=== PATIENT | male | born 1935 | race Caucasian/White ===

== ENCOUNTER 2017-01-29 11:08 | Emergency (ER) | payer OTHER, BC ==
--- NOTE | 2017-01-29 11:28 | CPEKG ---
Heart Rate: 78 RR Interval: 769 QRSD Interval: 106 QT Interval: 448 QTC Interval: 511 QRS [place]: 111 T Wave [place]: 9 EKG Severity - ABNORMAL ECG - EKG Impression: ATRIAL FIBRILLATION EKG Impression: LEFT POSTERIOR FASCICULAR BLOCK EKG Impression: ABNRM R PROG, CONSIDER ASMI OR LEAD PLACEMENT EKG Impression: PROLONGED QT INTERVAL Electronically Signed By: Jaziel Bee 29-Jan-2017 11:57:02
--- NOTE | 2017-01-29 11:28 | CPEKG ---
Heart Rate: 78 RR Interval: 769 QRSD Interval: 106 QT Interval: 448 QTC Interval: 511 QRS [place]: 111 T Wave [place]: 9 EKG Severity - ABNORMAL ECG - EKG Impression: ATRIAL FIBRILLATION EKG Impression: LEFT POSTERIOR FASCICULAR BLOCK EKG Impression: ABNRM R PROG, CONSIDER ASMI OR LEAD PLACEMENT EKG Impression: PROLONGED QT INTERVAL Electronically Signed By: Jaziel Bee 29-Jan-2017 11:57:02
[2017-01-29 11:37] LABS: PLATELET COUNT 152 10^3/uL (150-400)
--- NOTE | 2017-01-29 11:48 | EDPHY ---
H & P Stated Complaint: dyspnea x1 day worse with exertion Time Seen by Provider: 01/29/17 11:20 HPI/ROS: This patient complains of dyspnea on exertion more than dyspnea at baseline over the past 2 days. The patient has a history of mitral valve replacement 20 years ago on Coumadin with chronic AFib and flew here from [place] 9 days ago to stay with family-his daughter and son-in-law. He describes yesterday having an episode of dyspnea with minimal exertion of pulling nails out of boards and then this distant became worse with 50 yd walk to the home. He had to rest take regain his breath for few minutes thereafter. Usually he has good exercise tolerance at baseline so this was unusual for him. He has chronic right leg edema with no recent change but reports slight increase in left leg edema compared to baseline. The patient presented to [facility] initially with the symptoms but due to the symptoms was instructed to come here for evaluation instead was brought in by his daughter and son-in-law by private vehicle. The patient reports that recently his INR was low somewhere in the ones. The increased his Coumadin dose and response to that and his last INR was just over 2. ROS: No recent fevers or chills. He does have some fatigue compared to baseline. Psychiatric: The patient is still grieving the the of his in April. He also has some chronic anxiety and has taken Xanax 0.25 mg at bedtime and when he awakens after 4 hours or so for several months. He wants to stop the Xanax so he did not take last night's dose at bedtime using melatonin flare in route instead. He also did not have his typical evening martini over the past 2 nights and he awakened a few hours after falling asleep with what felt like a panic attack to him-extreme anxiety shortness of breath and emotional upset. This gradually subsided over time without intervention. Neuro: No headache, numbness tingling or other complaints no focal weakness. HEENT: No recent URI symptoms. No other complaints Pulmonary: No pleuritic pain. Cardiovascular: Patient admits orthopnea. His description of last night's panic episode is likely paroxysmal nocturnal dyspnea. He describes feeling like he had to sit up to catch his breath He does describe a mild right chest ache yesterday 06/10 at peak intensity that has resolved with exception of some lingering right pectoral region tenderness to touch. He describes heart palpitations during what felt like a panic attack p.m. last night describing a racing heart feeling. He is uncertain if this came on abruptly like lytes which are gradually. He also feels an occasional extra beat in his heart. At the moment he notices no significant heart palpitations. GI: No abdominal pain, nausea or vomiting : No complaints Integumentary: No significant pallor noted by family. Endocrine: His daughter notes the patient has had sensitivity to temperature requesting blankets in their home that is kept at 60 degrees becoming cold quite easily. Complete review of symptoms is otherwise negative. 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 Chronic AFib (taken off of digoxin 1 year ago) Hypertension Dyslipidemia Hx Asthma: No Hx Chronic Respiratory Disease: No Hx Diabetes: No Hx Cardiac Disease: Yes Hx Renal Disease: No Hx Cirrhosis: No Hx Alcoholism: No Hx HIV/AIDS: No Other PMH: mitral valve replacement, open heart surgery, HTN, gout - Family History Significant Family History: No pertinent family hx - Social History Smoking Status: Never smoked Alcohol Use: Other (He typically has 1 martini a night though he has not had a drink the previous 2 nights.) Drug Use: None Additional Social History: Visiting his family from [place] for the past 9 days. - Physical Exam Exam: General Appearance: Alert, no distress. Eyes: Pupils equal and round no pallor or injection. ENT, Mouth: Mucous membranes moist. Respiratory: There are no retractions, lungs are clear to auscultation. The patient has mild chest wall tenderness over the right pectoralis region Cardiovascular: Irregularly irregular with 3/6 holosystolic murmur. No JVD. Patient has moderate edema (2+ pitting) to the right lower extremity mild edema left lower extremity without significant tenderness. Gastrointestinal: Abdomen is soft and nontender, no masses, bowel sounds normal. Neurological: GCS 15 with no focal deficits. Skin: Warm and dry, no rashes. Musculoskeletal: Neck is supple nontender. Extremities are symmetrical, full range of motion. Psychiatric: Mood and affect normal DIFFERENTIAL DIAGNOSIS: After history and physical exam differential diagnosis was considered for pulmonary embolism, congestive heart failure, anxiety, myocardial ischemic disease, altitude intolerance, thyroid disease Constitutional: Initial Vital Signs Heart Rate 83 01/29/17 11:20 Respiratory Rate 20 01/29/17 11:20 Blood Pressure 136/97 H 01/29/17 11:20 O2 Sat (%) 93 01/29/17 11:20 O2 Delivery Mode Room Air Allergies/Adverse Reactions: Iodine and Iodide Containing Produc Allergy (Verified 01/29/17 11:24) Home Medications: Medication Instructions Recorded Allopurinol 300 MG (RX) 01/29/17 Aspirin 81mg (*) 01/29/17 Coumadin 5MG (*) 01/29/17 Furosemide [Lasix 20 MG (*)] 20 mg PO DAILY #30 tab 01/29/17 Lisinopril-Hctz 10-12.5 mg Tab 01/29/17 Multi-Vitamin Daily 01/29/17 Potassium Cl [Klor-Con 10 meq (RX)] 10 meq PO DAILY #30 tab 01/29/17 Tenormin 25 mg (*) 01/29/17 Warfarin Sodium [Coumadin 2.5MG 2.5 mg PO DAILY16 #20 tab 01/29/17 (*)] Xanax 0.25 MG (*) 01/29/17 Medical Decision Making - Diagnostics EKG Interpretation: 12 lead EKG: Performed at 11:23 a.m. indication dyspnea rule out coronary syndrome or other Atrial fibrillation at a rate of 78 Intervals: QRS of 106, QTC of [address]: QRS of 111, T of [address] segments: Normal throughout with exception of [address] depression in lead V6. Overall assessment atrial fibrillation, left posterior fascicular block, 1 PVC Imaging Results: Imaging Impressions Chest X-Ray 01/29/17 11:12 Impression: 1. Chronic CHF with interstitial pulmonary edema. No alveolar pulmonary edema identified. 2. Cannot exclude developing right lung pneumonia. Cardiomegaly with mild CHF findings-interstitial edema by my interpretation Imaging: I viewed and interpreted images myself ED Course/Re-evaluation: IV, monitor Counseled patient regarding his symptoms in anticipated workup and plan. Patient is treated with 0.5 inch nitropaste and 20 of Lasix IV Patient brisk diuresis with initial 375 mL of urine. I counseled him regarding CHF exacerbation. The patient prefers to proceed home rather than stay here longer and review of his labs reveals a normal D- dimer, INR of 2.1, normal CBC and chemistries. Is elevated B is consistent with his clinical findings of CHF exacerbation. His CHF exacerbation is likely attributable to a higher altitude, being taken off his digitalis. Other considerations would be mitral valve replacement wear, increase sodium intake while staying with his daughter that he does not think he is having more sodium unusual, thyroid disease. TSH is still pending but will at him proceed home and call with any significant abnormalities with TSH. Patient has a normal troponin I do not think he is having active cardiac ischemia. Similarly, given anticoagulation normal D-dimer do not think he is having a PE. While the radiologist mentioned potential early infiltrate at the base of the lung the chest x-ray, I do not think he has pneumonia given lack of fever, significant cough for elevated white blood cell count. Also no significant rales noted on exam. I spoke with Dr. Plata-feather duster winder on-call to facilitate follow-up. Will place the patient on 20 Lasix as an outpatient with potassium supplement, and increase his Coumadin by extra 7.5 mg dose per week. He is currently on 7.5 mg 3 times a week and 5 mg on off days. Will proceed to the 7.5 mg 4 times a week. I counseled patient regarding this. At the time of discharge the patient is breathing comfortably with an O2 sat of 94% room air normal respiratory rate ambulatory with no complaints. - Data Points Laboratory Results: Laboratory Results 01/29/17 11:30 01/29/17 11:30 01/29/17 01/29/17 01/29/17 11:30 11:30 11:30 WBC RBC Hgb Hct MCV MCH MCHC RDW Plt Count MPV Neut % (Auto) Lymph % (Auto) [place] % (Auto) Eos % (Auto) Baso % (Auto) Nucleat RBC Rel Count Absolute Neuts (auto) Absolute Lymphs (auto) Absolute Monos (auto) Absolute Eos (auto) Absolute Basos (auto) Absolute Nucleated RBC Immature Gran % Immature Gran # PT 23.4 SEC H SEC (12.0-15.0) INR 2.11 H (0.83-1.16) APTT 42.0 SEC H SEC (23.0-38.0) D-Dimer 0.31 ug/mLFEU ug/mLFEU (0.00-0.50) Sodium 136 mEq/L mEq/L (134-144) Potassium 4.4 mEq/L mEq/L (3.5-5.2) Chloride 97 mEq/L mEq/L (97-110) Carbon Dioxide 26 mEq/l mEq/l (22-31) Anion Gap 13 mEq/L mEq/L (8-16) BUN 18 mg/dL mg/dL (7-23) Creatinine 0.8 mg/dL mg/dL (0.7-1.3) Estimated GFR > 60 Glucose 110 mg/dL H mg/dL (70-100) Calcium 9.4 mg/dL mg/dL (8.5-10.4) Troponin I < 0.012 ng/mL ng/mL (0.000-0.034) NT-Pro-B Natriuret Pep 3110 pg/mL H pg/mL (0-450) TSH 2.870 uIU/mL uIU/mL (0.465-4.680) 01/29/17 11:30 WBC 6.11 10^3/uL 10^3/uL (3.80-9.50) RBC 4.24 10^6/uL L 10^6/uL (4.40-6.38) Hgb 13.9 g/dL g/dL (13.7-17.5) Hct 40.5 % % (40.0-51.0) MCV 95.5 fL fL (81.5-99.8) MCH 32.8 pg pg (27.9-34.1) MCHC 34.3 g/dL g/dL (32.4-36.7) RDW 13.9 % % (11.5-15.2) Plt Count 152 10^3/uL 10^3/uL (150-400) MPV 9.6 fL fL (8.7-11.7) Neut % (Auto) 64.6 % % (39.3-74.2) Lymph % (Auto) 26.7 % % (15.0-45.0) [place] % (Auto) 7.7 % % (4.5-13.0) Eos % (Auto) 0.5 % L % (0.6-7.6) Baso % (Auto) 0.3 % % (0.3-1.7) Nucleat RBC Rel Count 0.0 % % (0.0-0.2) Absolute Neuts (auto) 3.95 10^3/uL 10^3/uL (1.70-6.50) Absolute Lymphs (auto) 1.63 10^3/uL 10^3/uL (1.00-3.00) Absolute Monos (auto) 0.47 10^3/uL 10^3/uL (0.30-0.80) Absolute Eos (auto) 0.03 10^3/uL 10^3/uL (0.03-0.40) Absolute Basos (auto) 0.02 10^3/uL 10^3/uL (0.02-0.10) Absolute Nucleated RBC 0.00 10^3/uL 10^3/uL (0-0.01) Immature Gran % 0.2 % % (0.0-1.1) Immature Gran # 0.01 10^3/uL 10^3/uL (0.00-0.10) PT INR APTT D-Dimer Sodium Potassium Chloride Carbon Dioxide Anion Gap BUN Creatinine Estimated GFR Glucose Calcium Troponin I NT-Pro-B Natriuret Pep TSH Medications Given: Discontinued Medications Furosemide (Lasix Injection) 20 mg IVP EDNOW ONE Stop: 01/29/17 12:11 Last Admin: 01/29/17 12:16 Dose: 20 mg Nitroglycerin (Nitro-Bid 2%) 0.5 inch TP EDNOW ONE Stop: 01/29/17 12:11 Last Admin: 01/29/17 12:15 Dose: 0.5 inch Departure - Departure Disposition: Home, Routine, Self-Care Clinical Impression: Anxiety CHF exacerbation Qualifiers: Congestive heart failure type: unspecified congestive heart failure type Qualified Code(s): I50.9 - Heart failure, unspecified Condition: Good Instructions: Heart Failure (ED) Additional Instructions: Diagnosis: 1. CHF exacerbation 2. Anxiety Plan: Start taking Lasix-20 mg a day in the morning Take supplemental potassium since the Lasix washes out some potassium from the body Take a baby aspirin each day Take an increased Coumadin regimen by taking 7.5 mg total today & 4 days a week (instead of 3 days) along with the usual 5 mg doses on other days Regarding the Xanax, try a slow reduction in the dose by taking usual 0.25 mg dose at bedtime and then if you wake up with anxiety cut the 2nd dose after 0.125 mg. if you tolerate this then try reducing the bedtime dose to 0.[address] Plata-feather duster winder Monday to arrange follow-up appointment for recheck (explain that you were seen in the ED, that we spoke with Dr. Plata & that he wants to have an expedient follow-up with the patient.) Return to the emergency department for any significant worsening despite the treatment plan Also follow up with primary care physician and feather duster winder upon return to [place]. Referrals: [facility] [Other] - As per Instructions Kobe Plata MD [Medical Doctor] - As per Instructions Prescriptions: Furosemide [Lasix 20 MG (*)] 20 mg PO DAILY #30 tab Potassium Cl [Klor-Con 10 meq (RX)] 10 meq PO DAILY #30 tab Warfarin Sodium [Coumadin 2.5MG (*)] 2.5 mg PO DAILY16 #20 tab
[2017-01-29 12:06] LABS: INR 2.11 (0.83-1.16); PROTIME(PATIENT) 23.4 SEC (12.0-15.0)
[2017-01-29] MEDS ORDERED: FUROSEMIDE 20 MG/2 ML VIAL IVP ONE (12:10)
[2017-01-29] MEDS ORDERED: NITROGLYCERIN 2% 1 GM PACKET TP ONE (12:10)
[2017-01-29 13:07] VITALS: RESP 16
[2017-01-29 13:57] VITALS: BP 125/93; PULSE 65; O2SAT 93
== END 2017-01-29 13:50 | disposition home or self-care (01) ==
LOC: CED 11:08
DX: I11.0 Hypertensive heart disease with heart failure (principal); I50.9 Heart failure, unspecified; F41.9 Anxiety disorder, unspecified; Z79.82 Long term (current) use of aspirin; Z79.01 Long term (current) use of anticoagulants
CPT/HCPCS: 71020; 93005; 96374; 99285; J1940; 80048-PO; 83880-PO; 84443-PO; 84484-PO; 85025-PO; 85378-PO; 85610-PO; 85730-PO

== ENCOUNTER 2017-06-08 08:04 | Inpatient (IN) | payer OTHER, BC ==
--- NOTE | 2017-06-08 09:26 | EDPHY ---
H & P Time Seen by Provider: 06/08/17 09:25 HPI/ROS: Chief complaint. Sore throat HPI. 81-year-old male sore throat for 4 days. He is visiting from [place] and arrived yesterday. He was already ill. He felt the 8 S stuck pill in the back of his throat 5 days ago and still feels some irritation. He has had some congestion. No fever. He has been coughing. He arrived and for got his Xanax prescription so last night went to bed after taking some [place] tea but is somewhat anxious as well. He will be here for approximately 2 weeks. He denies chest pressure or shortness of breath. No abdominal pain ROS Constitutional. no fever/chills, no weakness Eyes. no problems with vision ENT. Sore throat and congestion Cardiovascular. no chest pain Respiratory. Cough but no shortness of breath Abdominal. no abdominal pain, no nausea/vomiting, no diarrhea . no problems urinating MS. no calf pain/swelling, no neck/back pain, no joint pain Skin. no rash Lymph. no swollen glands Neuro. Anxiety Past Medical/Surgical History: Past medical history is significant for mitral valve replacement, CABG, hypertension, gout Social History: , nonsmoker, no alcohol Smoking Status: Never smoked Physical Exam: General Appearance: Alert well-developed male mild distress somewhat anxious vital signs are stable Eyes: Pupils equal and round no pallor or injection. ENT, mucous membranes are moist. Pharynx without significant injection or swelling. No evidence for foreign body. There is no stridor. Patient speaks in full sentences. He is swallowing secretions. Respiratory: There are no retractions, lungs are clear to auscultation. Cardiovascular: Regular rate and rhythm. Gastrointestinal: Abdomen is soft and nontender, no masses, bowel sounds normal. Neurological: Awake and alert, sensory and motor exams grossly normal. Skin: Warm and dry, no rashes. Musculoskeletal: Neck is supple nontender. Extremities symmetrical, full range of motion. Psychiatric: Patient is oriented X 3, there is no agitation. Slightly anxious Constitutional: Initial Vital Signs Temperature (C) 36.8 C 06/08/17 08:14 Heart Rate 78 06/08/17 08:14 Respiratory Rate 18 06/08/17 08:14 Blood Pressure 113/78 06/08/17 08:14 O2 Sat (%) 95 06/08/17 08:14 O2 Delivery Mode Room Air Allergies/Adverse Reactions: Iodine and Iodide Containing Produc Allergy (Verified 06/08/17 08:12) Home Medications: Medication Instructions Recorded Allopurinol 300 MG (RX) 01/29/17 Aspirin 81mg (*) 01/29/17 Coumadin 5MG (*) 01/29/17 Furosemide [Lasix 20 MG (*)] 20 mg PO DAILY #30 tab 01/29/17 Lisinopril-Hctz 10-12.5 mg Tab 01/29/17 Multi-Vitamin Daily 01/29/17 Potassium Cl [Klor-Con 10 meq (RX)] 10 meq PO DAILY #30 tab 01/29/17 Warfarin Sodium [Coumadin 2.5MG 2.5 mg PO DAILY16 #20 tab 01/29/17 (*)] Xanax 0.25 MG (*) 01/29/17 ALPRAZolam [Xanax 0.25 MG (*)] 0.25 mg PO BID #30 tab 06/08/17 Toprol Xl 06/08/17 Medical Decision Making - Diagnostics Imaging Results: Imaging Impressions Chest X-Ray 06/08/17 09:42 Impression: 1. Stable moderate cardiomegaly. 2. Stable fibrotic changes at the lung bases. Lateral soft tissue neck shows no evidence for Foreign body. Chest x-ray appears nonacute. No evidence for pneumonia. He has had coronary artery bypass. Procedures: Rapid strep screen is negative. ED Course/Re-evaluation: Re-evaluation at 10:25 a.m..--patient is stable. He speaking in full sentences and handling his secretions. No stridor. The patient and I discussed imaging and lab results. We discussed treatment plan including criteria for return importance of follow-up and further evaluation. He expresses understanding and agreement He tells me he takes Xanax 0.25 mg as twice daily for anxiety and sleep and this is the prescription that he forgot at home and [place] Differential Diagnosis: Patient may have mild URI. This may be altitude although he had slight sore throat prior to arrival. He thinks he got a pill stuck for 5 days ago and he may have some irritation from this. There is no evidence of obstruction or foreign body at this point in time. I will give him a referral to ENT for continuing symptoms. - Data Points Laboratory Results: 06/08/17 06/08/17 Unknown 09:50 Group A Strep Screen NEGATIVE (NEGATIVE) Group A Strep DNA Pending Medications Given: Discontinued Medications Al Hydroxide/Mg Hydroxide (Maalox Susp) 30 ml PO ONCE ONE Stop: 06/08/17 09:43 Last Admin: 06/08/17 09:54 Dose: 30 ml Departure - Departure Disposition: Home, Routine, Self-Care Clinical Impression: Acute pharyngitis Qualifiers: Pharyngitis/tonsillitis etiology: unspecified etiology Qualified Code(s): J02.9 - Acute pharyngitis, unspecified Condition: Good Instructions: Pharyngitis (ED) Additional Instructions: Drink plenty of fluids and stay hydrated. Throat lozenges to help with sore throat. Return for worsening sore throat, fever, trouble swallowing. Follow up with ENT in 2-3 days for continuing symptoms Referrals: [facility] [Other] - As per Instructions Supriya Jacques MD [Medical Doctor] - 2-3 days, if not improved Prescriptions: ALPRAZolam [Xanax 0.25 MG (*)] 0.25 mg PO BID #30 tab
[2017-06-08] MEDS ORDERED: MAG HYDROX/AL HYDROX/SIMETH 30 ML UDCUP PO ONE (09:42)
[2017-06-08] MEDS ORDERED: AMPICILLIN/SULBACTAM 3 GM in NS 100 ML IV ONE (11:19)
[2017-06-08] MEDS ORDERED: NS 1,000 ML IV ONE (11:19)
[2017-06-08] MEDS ORDERED: DEXAMETHASONE 10 MG/ML VIAL IVP ONE (11:19)
[2017-06-08 11:48] LABS: PLATELET COUNT 93 10^3/uL (150-400)
[2017-06-08] MEDS ORDERED: AMPICILLIN/SULBACTAM 3 GM VIAL IV ONE (12:30)
[2017-06-08] MEDS ORDERED: ONDANSETRON 4 MG/2 ML VIAL IVP PRN (13:18)
[2017-06-08] MEDS ORDERED: HYDROmorphone HCL/NS 0.5 MG/ML SYR IVP PRN (13:18)
[2017-06-08] MEDS ORDERED: ONDANSETRON DISINTEGRATING 4 MG TAB PO PRN (13:18)
[2017-06-08] MEDS ORDERED: PROMETHAZINE HCL 25 MG/ML INJ IVP PRN (13:18)
[2017-06-08] MEDS ORDERED: ALBUTEROL 3 ML DEYVIAL IH PRN (13:18)
[2017-06-08] MEDS ORDERED: ACETAMINOPHEN 325 MG TAB PO PRN (13:18)
--- NOTE | 2017-06-08 13:27 | PDCONSULT ---
Gas Booster Engineer Note: H & P HPI: This 81-year-old male sore throat for 4 days. He reports sore throat for the last 48 hours. Feels as though he has a pill stuck in throat. Very painful to swallow. No issues breathing, though he is very anxious. He states he "feels awful". Denies fever. Past Medical/Surgical History: PER ED note Social History: Physical Exam: General Appearance: Alert, anxious. Vitals are stable. ENT: Pharynx without significant injection or swelling. No evidence for foreign body. There is no stridor. Patient speaks in full sentences. He is swallowing secretions. Flexible fiberoptic laryngoscopy was performed and reveals significant edema and erythema of epiglottis and bilateral arytenoids. VCs moving well, however mild narrowing of airway. Upper trachea visualized, patent. Respiratory: Breathing well, no stridor. Cardiovascular: Regular rate and rhythm. Skin: Warm and dry, no rashes. Psychiatric: Patient is oriented X 3 Allergies/Adverse Reactions: Iodine and Iodide Containing Produc Allergy (Verified 06/08/17 08:12) Home Medications: Medication Instructions Recorded Allopurinol 300 MG (RX) 01/29/17 Aspirin 81mg (*) 01/29/17 Coumadin 5MG (*) 01/29/17 Furosemide [Lasix 20 MG (*)] 20 mg PO DAILY #30 tab 01/29/17 Lisinopril-Hctz 10-12.5 mg Tab 01/29/17 Multi-Vitamin Daily 01/29/17 Potassium Cl [Klor-Con 10 meq (RX)] 10 meq PO DAILY #30 tab 01/29/17 Warfarin Sodium [Coumadin 2.5MG 2.5 mg PO DAILY16 #20 tab 01/29/17 (*)] Xanax 0.25 MG (*) 01/29/17 ALPRAZolam [Xanax 0.25 MG (*)] 0.25 mg PO BID #30 tab 06/08/17 Toprol Xl 06/08/17 Imaging: Lateral neck x-ray reveals mild swelling of epiglottis. Assessment/Plan 81 year old male with acute epiglottis. We have recommended IV dexamethasone and IV ceftriaxone per infectious disease and admission to ICU for observation. We will plan to reevaluate patient later today. Patient was also evaluated by Dr. Turner
[2017-06-08] MEDS ORDERED: NS 1,000 ML IV SCH (13:30)
--- NOTE | 2017-06-08 14:19 | GHP ---
[f rep st] HISTORY AND PHYSICAL DATE OF ADMISSION: 06/08/2017 HISTORY OF PRESENT ILLNESS: The patient is a 81-year-old gentleman with a history of valv e replacement, who presents with sore throat, difficulty breathing. He traveled here from [place], where he lives, to visit his daughter. The plan is to stay for 2 weeks. He had an upper respiratory infection with runny nose and sore throat that began prior to travel. Last night, he had a difficul t time breathing and had a hard time moving air. He felt like he got a pill stuck in the back of his throat. He had pain with swallowing. He sought care today, where he was found to have a narrowed airway on film. He was scoped by ENT as well. When I speak to the patient, he says he feels better than upon arrival, having received steroids. He has had no vomiting. He has been gassy. He has not had diarrhea. No fever, chills. REVIEW OF SYSTEMS: Complete 10-point review of systems conducted and negative except as noted in the HPI. 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 This appears to be a mechanical valve. ALLERGIES: No known drug allergies. HOME MEDICATIONS: Lisinopril/hydrochlorothiazide, allopurinol, alprazolam, aspirin, vitamin D3, furo semide, metoprolol XL, multivitamin, warfarin. SOCIAL HISTORY: Lives in [place]. Nonsmoker. Rare alcohol. FAMILY HISTORY: Daughter healthy, at the bedside. PHYSICAL EXAMINATION: VITAL SIGNS: Temp 37, blood pressure 113/78, pulse 78, breathing 18 times a m inute, 95% on room air. GENERAL: No acute distress. ENT: His voice is different than usual, accor ding to the patient and his daughter. His oropharynx is clear. I did not scope him. NECK: Supple, without lymphadenopathy or JVD. LUNGS: Clear to auscultation bilaterally. There is no stridor. H EART: S1, S2. Systolic murmur noted. ABDOMEN: Soft, nontender, nondistended. LOWER EXTREMITIES: Without edema. Calves are nontender. SKIN: Without rash. NEUROLOGIC: Nonfocal. LABORATORY DATA: Group A strep is negative. Sodium 120, potassium 4.3, chloride 85, bicarb 28, BUN 17, creatinine 0.6, glucose 106. White count 6.4, hematocrit 36.4. Platelets are 93,000. Chest x-ray, interpreted by me, shows cardiomegaly and evidence of a prior valve surgery and a prior midline sternotomy. There is assumed to be scarring at the lung bases. Neck film shows mild thicken ing of the epiglottis and aryepiglottic fold. Consider epiglottitis. I have discussed the case with Dr. Brijesh Douglas. ASSESSMENT AND PLAN: 81-year-old gentleman with history of heart failure and mitral valve replacemen t, here with possible epiglottitis. 1. Epiglottitis: The patient has increased work of breathing, changed voice, and imaging is consist ent with epiglottic thickening. This is consistent with a diagnosis of mild epiglottitis. He has be en started on steroids, which I will continue, Dex-4 every 6. I will also put him on ceftriaxone 2 g every 24. Otolaryngology will follow him. We will admit him to the intensive care unit. There is no indication for intubation at this time. 2. Hyponatremia: In February, he had a sodium here of 136. I suspect this is hypovolemic hyponatre korina versus poor p.o. intake. The patient has been started on some intravenous fluids. I will repeat it in a couple hours. The patient does not appear symptomatic secondary to this. 3. Thrombocytopenia: He has a history of low-normal platelets. We will follow. 4. Prophylaxis: The patient is therapeutically anticoagulated. I will check an INR and follow it d vicky. 5. Dysphagia: The patient failed a bedside attempt at swallowing. I will hold his oral medicines, and we will hopefully begin to add them in the morning. The patient has anxiety, takes twice daily X anax. I will start some twice daily half a milligram of intravenous Ativan. His heart failure medic batsheva will be placed on hold. 6. Disposition: Intensive care unit. RISK: High. CODE: Full. /[id number]/MODL
--- NOTE | 2017-06-08 14:49 | GCON ---
[f rep st] CONSULTATION INPATIENT INFECTIOUS DISEASE CONSULTATION REFERRING PHYSICIAN: Freddy Turner MD REASON FOR REFERRAL: Acute epiglottitis. HISTORY OF PRESENT ILLNESS: Patient is a 81-year-old [place] who was in the [place] area for the last few days visiting his daughter. The patient noted approximately 3 days ago he developed a sore throat he believes after taking some medications. This has been increasingly pa inful over the last 3 days and resulted in his presentation to the emergency room this morning. Ches t x-ray was performed which other than moderate cardiomegaly did not show acute process in the lungs. He had a soft tissue neck x-ray which revealed mild thickening of the epiglottis and area epiglotti c folds which indicated possible epiglottitis. The patient was seen by Ear, Nose, Throat and had a f lexible laryngoscopy done. This revealed inflammation, but no retained pill fragments. The patient was given a dose of dexamethasone 4 mg IV push as well as ceftriaxone 2 g IV in the ER. Currently, prieto maradiaga is sitting in the emergency room. He denies any fevers or chills. He is breathing well. He does complain of mild abdominal distention. He notes having significant bowel gas. PAST MEDICAL HISTORY: 1. Congestive heart failure. 2. Mitral valve replacement. 3. Hypertension. 4. Gout. PAST SURGICAL HISTORY: 1. Status post mitral valve replacement. 2. Status post coronary artery bypass grafting. ANTIBIOTICS: 1. Ceftriaxone. 2. Single dose of Unasyn. ALLERGIES: Patient is allergic to iodine. SOCIAL HISTORY: The patient lives in [place]. Family in the [facility]. He is . 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 FAMILY HISTORY: Reviewed, but not contributory. REVIEW OF SYSTEMS: Other than that detailed above in History of Present Illness, comprehensive 10-sy stem review is negative. PHYSICAL EXAMINATION: VITAL SIGNS: Temperature is 37.3, heart rate is 84, respiratory rate is 18, b lood pressure is 120/79. GENERAL: The patient is a well-formed, well-nourished, older male, in no a cute distress. He is nontoxic in appearance. He is alert and oriented x3. He is in a pleasant helen anor. HEENT: Normocephalic for age. Atraumatic. No scleral icterus. No oral lesion or drainage f rom the nares. Eyes: Lids and conjunctivae are within normal limits. Pupils are equal and round bilaterally. NECK : Supple. No meningismus. LUNGS: Clear to auscultation bilaterally with good effort. No wheeze o r stridor noted. HEART: Regular rate and rhythm. No significant edema noted. ABDOMEN: Soft nonte nder, but distended. No masses. SKIN: Warm and dry to the touch. No rash or lesion noted. MUSCUL OSKELETAL: No muscle belly tenderness is noted. No joint large effusion or arthritis is seen. NEUR O: Cranial nerves 2-12 seem to be intact. Peripheral sensation seems intact in extremities. LABORATORY DATA: Patient has a CBC dated 06/08/2017 shows a white blood cell count of 6.4, hemoglobi n of 12.9, hematocrit of 36.4, and a platelet count of 93. Differential is within normal limits. [facility] chemistries on 06/08/2017 show sodium 120, potassium 4.3, chloride of 85, bicarbonate of 28, BUN of 17, and creatinine of 0.6. Strep screen on 06/08/2017 is negative. ASSESSMENT: Pharyngitis with epiglottitis. Unclear if viral versus bacterial. Group A streptococcu s antigen test is negative. Agree with coverage with ceftriaxone empirically. Will continue the 2 g daily dose and observe. At this point, he will be admitted to watch for resolution of airway swelli ng. PLAN: 1. Continue ceftriaxone 2 g IV daily. 2. Follow clinical course and patient's symptoms. /[id number]/MODL
[2017-06-08] MEDS: cefTRIAXone 2 GM in STERILE WATER INJ 20 ML IV SCH (15:01)
[2017-06-08 16:24] LABS: INR 1.97 (0.83-1.16); PROTIME(PATIENT) 22.5 SEC (12.0-15.0)
--- NOTE | 2017-06-08 16:33 | PDMN ---
Medical Necessity Medical necessity: Pt meets IP criteria per MD; est los >2 mn for eval/tx of epiglottis w/difficulty breathing & dysphagia; admit to ICU for further workup/ monitoring, Otolaryngology consult, IV steroids, IV abx, IVFs & APPLIED ANTHROPOLOGIST consult; hx recent upper respiratory infection, heart failure, MV replacement, thrombocytopenia; per H&P & order 06/08/17
--- NOTE | 2017-06-08 17:26 | SOAPPROG ---
SOAP Progress Note Assessment/Plan: Assessment/Plan: 81 year old male with acute epiglottitis. Flexible laryngoscopy revealed stable edema and erythema compared to this morning. He remains on IV ceftriaxone and dexamethasone. I did review with patient and his mother the need for intubation for airway compromise. Plan was reviewed with Dr. Turner. We will inform Dr. Jacques as she is manager retention tonight. We will plan to reassess tomorrow morning. 06/08/17 17:23 Subjective: Patient reports no change in symptoms compared to this morning. Mild difficulty breathing. Notes thick secretions in throat and post nasal drip. Objective: Vital Signs Temp Pulse Resp BP Pulse Ox 36.4 C 82 22 H 122/81 H 94 06/08/17 16:00 06/08/17 16:00 06/08/17 16:00 06/08/17 16:00 06/08/17 16:00 Laboratory Results 06/08/17 16:00 06/07/17 06/08/17 06/09/17 05:59 05:59 05:59 Intake Total 1000 Balance 1000 PT 22.5 SEC (12.0-15.0) H 06/08/17 16:00 INR 1.97 (0.83-1.16) H 06/08/17 16:00 Pat Physical Exam - Physical Exam General Appearance: alert, no apparent distress EENT: other (Flexible fiberoptic laryngoscopy reveals significant edema and erythema of epiglottis and aretenoids. Good VC movement. Upper trachea visualized. Stable compared to exam this morning. ) Neck: full range of motion, supple Respiratory: normal breath sounds, No stridor, No wheezing ICD10 Worksheet Patient Problems: Problems Problem Status Onset Acute pharyngitis Acute
[2017-06-08] MEDS: DEXAMETHASONE 4 MG/ML VIAL IVP SCH ×2 (18:08→23:31)
[2017-06-08] MEDS: LORazepam 2 MG/ML INJ IVP PRN (21:03)
[2017-06-09] MEDS: LORazepam 2 MG/ML INJ IVP PRN (03:18)
[2017-06-09 03:43] LABS: INR 2.34 (0.83-1.16); PROTIME(PATIENT) 25.6 SEC (12.0-15.0)
[2017-06-09] MEDS: DEXAMETHASONE 4 MG/ML VIAL IVP SCH ×3 (06:24→18:24)
--- NOTE | 2017-06-09 08:53 | HOSPPROG ---
Hospitalist Progress Note Assessment/Plan: 81 yo M w chf, mitral valve repair admitted w epiglottitis epiglottitis: voice improved and feels well no stridor stable last andre per ENT scope 1. SPARE PERSON eval 2. ent to re eval continue ceftriaxone and steroids hyponatremia: resolved suspect was secondary to poor po intake, based on response to IVF mitral valve repair: inr therapeutic chf: restart meds after SPARE PERSON eval dispo: inpatient Subjective: case d/w dr garcia. feels better this AM. on RA. afebrile Objective: Vital Signs Temp Pulse Resp BP Pulse Ox 36.4 C 87 18 114/78 96 06/09/17 07:43 06/09/17 07:43 06/09/17 07:43 06/09/17 07:43 06/09/17 07:43 Laboratory Results 06/09/17 03:00 06/08/17 06/09/17 06/10/17 05:59 05:59 05:59 Intake Total 2296 Output Total 275 Balance 2020 PT 25.6 SEC (12.0-15.0) H 06/09/17 03:00 INR 2.34 (0.83-1.16) H 06/09/17 03:00 - Physical Exam Constitutional: no apparent distress, appears nourished Eyes: PERRL, anicteric sclera Ears, Nose, Mouth, Throat: moist mucous membranes, hearing normal, other (voice ) Cardiovascular: regular rate and rhythym, no murmur, rub, or gallop Respiratory: no respiratory distress, no rales or rhonchi Gastrointestinal: normoactive bowel sounds, soft, non-tender abdomen Genitourinary: No cui in urethra Skin: warm, normal color Musculoskeletal: full muscle strength, no muscle tenderness Neurologic: AAOx3, sensation intact bilaterally Psychiatric: interacting appropriately ICD10 Worksheet Patient Problems: Problems Problem Status Onset Acute pharyngitis Acute
[2017-06-09] MEDS ORDERED: ENOXAPARIN 40 MG/0.4 ML SYR SC SCH (09:00)
[2017-06-09] MEDS: cefTRIAXone 2 GM in STERILE WATER INJ 20 ML IV SCH (09:06)
--- NOTE | 2017-06-09 10:10 | SOAPPROG ---
SOAP Progress Note Assessment/Plan: Assessment/Plan: 81 year old male with acute epiglottitis. Subjectively he has improved. Flexible laryngoscopy performed this morning revealed stable edema and erythema compared to yesterday evening. He remains on IV ceftriaxone and dexamethasone. We will reassess this afternoon. Will discuss outpatient treatment at that time with close follow up in clinic. Plan was reviewed with Dr. Turner. 06/09/17 10:07 Subjective: Patient states he is doing better. No issues breathing. Will have swallow study soon. States throat pain has diminished. Daughter states his voice has returned to normal. Objective: Vital Signs Temp Pulse Resp BP Pulse Ox 36.4 C 87 18 114/78 96 06/09/17 07:43 06/09/17 07:43 06/09/17 07:43 06/09/17 07:43 06/09/17 07:43 Laboratory Results 06/09/17 03:00 06/08/17 06/09/17 06/10/17 05:59 05:59 05:59 Intake Total 2296 Output Total 275 Balance 2020 PT 25.6 SEC (12.0-15.0) H 06/09/17 03:00 INR 2.34 (0.83-1.16) H 06/09/17 03:00 Physical Exam - Physical Exam General Appearance: alert, no apparent distress EENT: other (Flexible laryngoscopy reveals stable edema and erythema at epiglottis and bilateral arytenoids. Airway slightly narrow. Stable exam. ) Neck: full range of motion, supple Respiratory: No respiratory distress, No decreased breath sounds, No stridor, No wheezing ICD10 Worksheet Patient Problems: Problems Problem Status Onset Acute pharyngitis Acute
--- NOTE | 2017-06-09 11:15 | ASMTCMCOM ---
CM Note CM Note Notes: Patient admitted with acute epiglottitis. He has improved since admission. He lives in [place] and is here visiting his daughter Payton. He will convalesce at her home before returning to [place]. HEEL SEAT POUNDER has seen and discharged him. Case Management available if any discharge needs arise. Date Signed: 06/09/2017 11:14 AM Electronically Signed By:Ame Drew RN
--- NOTE | 2017-06-09 11:50 | PCMIDPN ---
Assessment/Plan: 1. Epiglottitis: Presentation sounds more viral in nature, but will err on side of caution and continue antibiotics for now. Patient will likely go home in the morning; would change abx to Augmentin 875 p. O. Twice daily for 10 days. 06/09/17 11:50 Subjective: Feeling much better. No stridor, dysphonia, or other. Apparently still has some swelling of his epiglottis visualized by ENT. No diarrhea on the antibiotics. Able to swallow and eat just fine. Objective: Ceftriaxone 2 g IV daily day 2 Afebrile Vital Signs Temp Pulse Resp BP Pulse Ox 36.4 C 87 18 114/78 96 06/09/17 07:43 06/09/17 07:43 06/09/17 07:43 06/09/17 07:43 06/09/17 07:43 Laboratory Results 06/09/17 03:00 06/08/17 06/09/17 06/10/17 05:59 05:59 05:59 Intake Total 2296 Output Total 275 Balance 2020 Group a strep DNA negative - Physical Exam General Appearance: alert, no apparent distress EENT: pharynx normal, No thrush Respiratory: lungs clear Cardiac/Chest: irregularly irregular ICD10 Worksheet Patient Problems: Problems Problem Status Onset Acute pharyngitis Acute
--- NOTE | 2017-06-09 13:55 | PDCONSULT ---
[facility] Note: Pulmonary consultation. Reason consultation: pharyngitis/epiglottitis. History: Patient is a very pleasant 81-year-old with a history of mitral valve replacement, chronic anticoagulation, coronary artery disease, hypertension, and gout. He had several days of increasing sore throat and presented to the emergency department with difficulty swallowing. He was found to have a pharyngitis. ENT was consulted and rhino laryngoscopy was done. The epiglottis was noted to be somewhat swollen and he was felt to have epiglottitis. He had no evidence of stridor or upper airway obstruction with this. He was started on antibiotics and steroids and admitted to the intensive care unit for observation. On examination in the ICU yesterday evening he had no stridor, was complaining of a sore throat, was not having any breathing difficulties, but stated he did not feel very well. Follow-up rhino laryngoscopy in the evening showed no significant change in his swelling. Today he is doing well. He states he is feeling much better, sore throat is much better. He is having no breathing difficulties. He passed his swallow evaluation. Rhino laryngoscopy was again done this morning and persistent epiglottic erythema and edema was noted. Is recommended that discharge be held until at least the afternoon. Follow-up rhino laryngoscopy will be done at that time. Infectious Disease is seeing the patient. They feel will be able to go home on oral antibiotics and prednisone when cleared by ENT. Past medical history: As noted above. Drug allergies: Iodine. Medications on admission: Please see the admission summary for details. These include antihypertensives, warfarin, etc. Family history: Noncontributory. Review of systems: 10 point review of systems negative except as mentioned above. Physical examination reveals a very pleasant gentleman in no acute distress. Blood pressure is 145/75, heart rate 80 with sinus rhythm on the monitor. He is on room air. He is afebrile. Respiratory rate is 14. HEENT is remarkable for pharyngitis. There is no significant associated lymphadenopathy. There is no stridor. He is not hoarse. The chest is clear bilaterally. Heart is regular in rate and rhythm. Valve sounds are fine. There are are no gallops. The abdomen is soft nontender, bowel sounds normal. There is no organomegaly. Extremities are without edema, cords or tenderness. Assessment/Plan: Pharyngitis/epiglottitis. He is being treated with antibiotics and steroids. He is doing well. There is no evidence of airway compromise. He can be transferred to a medical-surgical bed or status from my standpoint. It is possible, based on this afternoon's rhino laryngoscopy that he can be discharged to home to continue oral antibiotics and a steroid taper with follow-up by a ENT and his outpatient physician. 30 min of critical care time was spent directly with the patient today, 20 min last night. Discussed with Infectious Disease, hospitalist, ENT, and the ICU multi disciplinary team.
[2017-06-09] MEDS: METOPROLOL SUCCINATE XR 25 MG TAB PO SCH (14:34)
--- NOTE | 2017-06-09 15:25 | SOAPPROG ---
SOAP Progress Note Assessment/Plan: Assessment/Plan: 81 year old male with acute epiglottitis. He has improved. Flexible laryngoscopy performed revealed moderately improved edema and erythema compared to this morning. He remains on IV ceftriaxone and dexamethasone. We discussed discharge this evening with outpatient antibiotics/dexamethasone. Patient would like to stay overnight. Dr. Jacques will evaluate tomorrow. Patient was evaluated by Dr. Storey, plan reviewed with him. 06/09/17 17:06 Objective: Vital Signs Temp Pulse Resp BP Pulse Ox 36.1 C 104 H 18 143/74 H 98 06/09/17 11:51 06/09/17 11:51 06/09/17 11:51 06/09/17 11:51 06/09/17 11:51 Laboratory Results 06/09/17 03:00 06/08/17 06/09/17 06/10/17 05:59 05:59 05:59 Intake Total 2296 Output Total 275 Balance 2021 PT 25.6 SEC (12.0-15.0) H 06/09/17 03:00 INR 2.34 (0.83-1.16) H 06/09/17 03:00 Physical Exam - Physical Exam General Appearance: no apparent distress EENT: other (flexible laryngsocpy reveals mild-moderate edema lingual side of epiglottis and bilateral arytednoids. Improved compared to this morning. ) Respiratory: No respiratory distress, No stridor, No wheezing ICD10 Worksheet Patient Problems: Problems Problem Status Onset Acute pharyngitis Acute
[2017-06-09] MEDS: FUROSEMIDE 20 MG TAB PO SCH (15:47)
[2017-06-09] MEDS ORDERED: WARFARIN SODIUM 7.5 MG TAB PO SCH (16:00)
[2017-06-09] MEDS ORDERED: ASPIRIN 81 MG CHEWABLE TAB PO SCH (21:00)
[2017-06-09] MEDS: ALPRAZolam 0.25 MG TAB PO SCH (21:06)
[2017-06-10] MEDS: DEXAMETHASONE 4 MG/ML VIAL IVP SCH ×3 (00:13→12:39)
[2017-06-10] MEDS: ALPRAZolam 0.25 MG TAB PO SCH (02:11)
[2017-06-10] MEDS: cefTRIAXone 2 GM in STERILE WATER INJ 20 ML IV SCH (08:55)
[2017-06-10] MEDS: METOPROLOL SUCCINATE XR 25 MG TAB PO SCH (08:56)
[2017-06-10] MEDS: FUROSEMIDE 20 MG TAB PO SCH (08:56)
[2017-06-10] MEDS ORDERED: LISINOPRIL/HCTZ 10/12.5 MG 1 EA TAB PO SCH (09:00)
[2017-06-10] MEDS ORDERED: CHOLECALCIFEROL VIT D3 1,000 UNITS TAB PO SCH (09:00)
[2017-06-10] MEDS ORDERED: ALLOPURINOL 300 MG TAB PO SCH (09:00)
[2017-06-10] MEDS ORDERED: Herbals/Supplements -Info Only PO SCH (09:00)
--- NOTE | 2017-06-10 09:15 | HOSPPROG ---
Hospitalist Progress Note Assessment/Plan: 81 yo M w chf, mitral valve repair admitted w epiglottitis epiglottitis: voice improved and feels well no stridor stable last andre per ENT scope 1. TUBE FILLER eval 2. ent to re eval continue ceftriaxone and steroids hyponatremia: resolved suspect was secondary to poor po intake, based on response to IVF ectopy: check electrolytes mitral valve repair: inr therapeutic recheck today chf: restart meds after TUBE FILLER eval dispo: home today after ENT eval > 30 minutes on dc Subjective: case d/w dr garcia. feels voice back to normal. eating w/out difficulty. tele: pvc's and 4 beats NSVT (interp by me) Objective: Vital Signs Temp Pulse Resp BP Pulse Ox 36.4 C 99 19 109/86 H 96 06/10/17 08:00 06/10/17 08:56 06/10/17 08:00 06/10/17 08:56 06/10/17 08:00 Laboratory Results 06/09/17 03:00 06/09/17 06/10/17 06/11/17 05:59 05:59 06:59 Intake Total 2296 750 Output Total 275 Balance 2020 750 PT 25.6 SEC (12.0-15.0) H 06/09/17 03:00 INR 2.34 (0.83-1.16) H 06/09/17 03:00 - Physical Exam Constitutional: no apparent distress, appears nourished Eyes: PERRL, anicteric sclera Ears, Nose, Mouth, Throat: moist mucous membranes, hearing normal Cardiovascular: regular rate and rhythym, no murmur, rub, or gallop, No edema Respiratory: no respiratory distress, no rales or rhonchi Gastrointestinal: normoactive bowel sounds, soft, non-tender abdomen Genitourinary: no bladder fullness, No cui in urethra Skin: warm, normal color Musculoskeletal: full muscle strength Neurologic: AAOx3 ICD10 Worksheet Patient Problems: Problems Problem Status Onset Acute pharyngitis Acute
[2017-06-10 10:53] LABS: INR 4.62 (0.83-1.16); PROTIME(PATIENT) 43.1 SEC (12.0-15.0)
--- NOTE | 2017-06-10 10:59 | SOAPPROG ---
SOAP Progress Note Assessment/Plan: Assessment/Plan: Pharyngitis/epiglottitis. Swelling better last night per ENT by rhino laryngoscopy. Patient opted to stay over night. Doing well this morning. No stridor, no swallowing problems. Can be discharged to home on amoxicillin and steroid taper. Subjective: Feels better. No significant sore throat. No breathing problems, no swallowing problems Objective: Vital Signs Temp Pulse Resp BP Pulse Ox 36.4 C 99 19 109/86 H 96 06/10/17 08:00 06/10/17 08:56 06/10/17 08:00 06/10/17 08:56 06/10/17 08:00 Laboratory Results 06/10/17 10:08 06/09/17 06/10/17 06/11/17 05:59 05:59 06:59 Intake Total 2296 750 Output Total 275 Balance 2021 750 PT 25.6 SEC (12.0-15.0) H 06/09/17 03:00 INR 2.34 (0.83-1.16) H 06/09/17 03:00 Physical Exam - Physical Exam General Appearance: alert, no apparent distress EENT: No other (On room air) Neck: normal inspection, other (No stridor) Respiratory: lungs clear Cardiac/Chest: irregularly irregular ICD10 Worksheet Patient Problems: Problems Problem Status Onset Acute pharyngitis Acute
[2017-06-10 11:58] VITALS: BP 117/58; PULSE 72; RESP 20; TEMP 97.6; O2SAT 94
--- NOTE | 2017-06-10 14:32 | GDS ---
[f rep st] DISCHARGE SUMMARY DISCHARGE DIAGNOSES: 1. Mild epiglottitis. 2. Acute hypoxemic respiratory failure, now resolved. 3. History of mitral valve replacement. 4. Mild heart failure of unknown style. HOSPITAL COURSE: Please see admission H and P by Dr. Easton Strickland. The patient had increased work of breathing. Neck x-ray showed narrowing. He was scoped by ENT, revealed possible epiglottitis. He received steroids and antibiotics. He was seen by ID, who recommended completing a course of ceft riaxone. He received about 48 hours of IV steroids. He was transitioned to p.o. prednisone for ludwig tional couple days. A 10-day course of antibiotics completed with Augmentin. He has resumed his hea rt medications. His INR is elevated at 4.6. I advised him to hold his warfarin until he gets an INR checked in 2 day s at [facility], where he has done so in the past. /[id number]/MODL
[2017-06-11] MEDS ORDERED: WARFARIN SODIUM 5 MG TAB PO SCH (16:00)
== END 2017-06-10 13:24 | disposition home or self-care (01) | DRG 152 ==
LOC: F2N 14:26
PROVIDERS: ADMIT Internal Medicine; ATTEND Internal Medicine
PROC: 0CJS8ZZ Inspection of Larynx, Via Natural or Artificial Opening Endoscopic (ICD-10-PCS; principal; 2017-06-08)
DX: J05.10 Acute epiglottitis without obstruction (principal); R13.10 Dysphagia, unspecified; J96.01 Acute respiratory failure with hypoxia; E87.1 Hypo-osmolality and hyponatremia; I25.10 Atherosclerotic heart disease of native coronary artery without angina pectoris; I11.0 Hypertensive heart disease with heart failure; I50.9 Heart failure, unspecified; Z79.01 Long term (current) use of anticoagulants; Z95.1 Presence of aortocoronary bypass graft; Z95.2 Presence of prosthetic heart valve
CPT/HCPCS: 92526-GN; 92610-GN; 96374; G8996-GN-CI; G8997-GN-CH; J0295; J0696; J1100; J2060